=== PATIENT | female | born 1965 | race Caucasian/White ===

== ENCOUNTER 2016-11-26 08:10 | Day surgery (SDC) | payer BC ==
[2016-11-25 09:56] VITALS: BMI 29.2
[2016-11-26] MEDS ORDERED: PROPOFOL 20 ML ONE (08:58)
[2016-11-26] MEDS ORDERED: LIDOCAINE HCL 2% 100 MG/5 ML DISP.SYRIN ONE (08:58)
[2016-11-26 09:29] VITALS: TEMP 97.7
[2016-11-26 10:56] VITALS: BP 124/79; PULSE 61
--- NOTE | 2016-11-29 12:17 | PATH ---
Surgical Pathology Report Patient Name: DEE REARDON [facility]. Rec. #: [id number] /Age/Gender: 1965 (Age: 51) / F Account: [id number] Location: [facility]-ENDOSCOPY Taken: 11/26/2016 Received: 11/26/2016 Reported: 11/29/2016 Physicians: Pebbles Turner M.D. Specimen(s) Received A: BX 2ND PORTION OF DUODENUM AND DUODENAL BULB B: BX ANTRUM Clinical History Epigastric pain, GERD Gastritis Final Diagnosis A. DUODENUM, BIOPSY: DUODENAL MUCOSA WITH NO PATHOLOGIC CHANGES. NO HISTOLOGIC EVIDENCE OF GLUTEN SENSITIVE ENTEROPATHY (CELIAC SPRUE) IDENTIFIED. B. STOMACH, ANTRUM, BIOPSY: MILD REACTIVE GASTROPATHY. IMMUNOSTAIN FOR H. PYLORI IS NEGATIVE. Electronically Signed Juan Remy M.D. Gross Description A. Received in formalin, labeled "biopsy second portion of duodenum and duodenal bulb" are 3 mcdermott, irregular portions of soft tissue ranging from 0.3-0.4 cm. in greatest dimension. The specimens are submitted in toto in one cassette. B. Received in formalin, labeled "biopsy antrum" are 3 mcdermott, irregular portions of soft tissue ranging from 0.2-0.4 cm. in greatest dimension. The specimens are submitted in toto in one cassette. 11/26/2016 [facility]11/26/2016
== END 2016-11-26 10:40 | disposition home or self-care (01) ==
LOC: JASU-ENDO 08:10
PROVIDERS: ATTEND Internal Medicine Gastroenterology
PROC: 0DB68ZX Excision of Stomach, Via Natural or Artificial Opening Endoscopic, Diagnostic (ICD-10-PCS; 2016-11-26)
PROC: 0DB98ZX Excision of Duodenum, Via Natural or Artificial Opening Endoscopic, Diagnostic (ICD-10-PCS; principal; 2016-11-26 09:00)
DX: K29.00 Acute gastritis without bleeding (principal)
CPT/HCPCS: 88305-TC; 88342-TC

== ENCOUNTER 2020-01-08 04:39 | Day surgery (SDC) | payer BC ==
[2020-01-07 08:41] VITALS: BMI 29.4
[2020-01-08] MEDS ORDERED: DEXAMETHASONE SOD PHOSPHATE 4 MG/1 ML VIAL ONE (07:17)
[2020-01-08] MEDS ORDERED: LIDOCAINE HCL/PF 2% SDV 5ML VIAL ONE (07:17)
[2020-01-08] MEDS ORDERED: SUCCINYLCHOLINE CHLORIDE 200 MG/10 ML SYRINGE ONE (07:18)
[2020-01-08] MEDS ORDERED: PROPOFOL 20 ML ONE (07:18)
[2020-01-08] MEDS ORDERED: MIDAZOLAM HCL 2 MG/2 ML SINGLE DOSE VIAL ONE (07:19)
[2020-01-08] MEDS ORDERED: IBUPROFEN 600 MG TABLET (FP) PO PRN (07:43)
[2020-01-08] MEDS ORDERED: ONDANSETRON 4 MG/2 ML VIAL IVPUSH PRN (07:43)
[2020-01-08] MEDS ORDERED: oxyCODONE HCL 5 MG TABLET PO PRN ×2 (07:43→08:41)
[2020-01-08] MEDS ORDERED: IBUPROFEN 800 MG/8 ML IJ IVPB PRN (07:43)
--- NOTE | 2020-01-08 07:43 | HP ---
History & Physical Update - History History: No Change (Consent signed and witnessed, all questions answered) - Physical Physical: No Change - Assessment Assessment: No Change - Plan Plan: No Change (Consent signed and witnessed)
[2020-01-08] MEDS ORDERED: ELECTROLYTE-148 SOLN 1,000 ML IV SCH (07:45)
[2020-01-08] MEDS ORDERED: LACTATED RINGERS SOLUTION 1,000 ML IV SCH (08:45)
[2020-01-08 10:08] VITALS: TEMP 96.6
--- NOTE | 2020-01-08 10:10 | OP ---
Operative Note - Note: Operative Date: 01/08/20 Pre-Operative Diagnosis: 54yo P1 Postmenopausal with thick Endometrium Operation: Hysteroscopy/Polypectomy/Myomectomy/D&C Findings: Overgrown endometrium Post-Operative Diagnosis: Same as Pre-op Surgeon: Nelly Clark Anesthesiologist/REPLANTING MACHINE OPERATOR: Merritt Mcghee Anesthesia: MAC Estimated Blood Loss (mls): 5 Instrument used (Debridements only): Symphion Hysteroscope Drains & Tubes with Location: FD 1000cc Drains, Volume Out (mls): 30 Fluid Volume Replaced (mls): 500 Operative Report Dictated: Yes
[2020-01-08] MEDS ORDERED: ONDANSETRON 4 MG/2 ML VIAL ONE (11:13)
[2020-01-08 12:01] VITALS: BP 120/83; PULSE 51
--- NOTE | 2020-01-09 15:15 | PATH ---
Surgical Pathology Report Patient Name: DEE REARDON [facility]. Rec. #: [id number] /Age/Gender: 1965 (Age: 54) / F Account: [id number] Location: [facility] SURGICAL Taken: 01/08/2020 Received: 01/08/2020 Reported: 01/09/2020 Physicians: Nelly Clark M.D. Specimen(s) Received FIBROID, POLYP AND ENDOMETRIAL CURRETINGS Clinical History Thick endometrium, abnormal bleeding post menopausal Final Diagnosis POLYP, FIBROID, ENDOMETRIAL CURETTINGS: ENDOMETRIAL TISSUE SHOWING COMPLEX HYPERPLASIA WITH ATYPIA. SEE COMMENT. SEPARATE PORTIONS OF SMOOTH MUSCLE BUNDLES, MAY REPRESENT A SUBMUCOSAL LEIOMYOMA. Comment: Low grade endometrial carcinoma cannot be completely ruled out. Intradepartmental case review with concordance on diagnosis. This case was discussed with Dr. Clark on 01/09/2020. Electronically Signed Alexandro Paredes M.D. Gross Description Received in formalin labeled "polyp, fibroid, endometrial curettings," is a 2.3 x 2.1 x 0.3 cm aggregate of mcdermott soft tissue fragments. The formalin is filtered and the specimen is entirely submitted in one cassette. /01/08/2020 [place]01/08/2020
--- NOTE | 2020-01-10 11:00 | OP ---
DATE OF OPERATION: 01/08/2020 PREOPERATIVE DIAGNOSIS: A 54-year-old para 1, postmenopausal, with thick endometrium. PROCEDURE PERFORMED: Hysteroscopy, polypectomy, myomectomy, dilatation and curettage. FINDINGS: Overgrown endometrium and submucosal fibroid tissue. POSTOPERATIVE DIAGNOSIS: A 54-year-old para 1, postmenopausal, with thick endometrium. SURGEON: Yadira Platt MD ANESTHESIOLOGIST: Merritt Mcghee MD ANESTHESIA: MAC. DESCRIPTION OF PROCEDURE: After ensuring informed consent, the patient was brought to the operating room, where she was placed in the dorsal lithotomy position. After achieving adequate anesthesia, the perineum and vagina were prepped and draped in sterile fashion. After completing the time-out, the bladder was drained with a straight catheter. The Symphion hysteroscope was assembled, primed and white balanced. Wheatley retractors were placed into the vagina. The anterior cervical lip was articulated with a single-tooth tenaculum and dilated with gradually increasing in size dilators to accommodate a 6.3-mm Symphion hysteroscope. The above findings were noted: Overgrown endometrium and a polyp and fibroid-like tissue. Resectoscope was introduced through the hysteroscope, and all inward protruding structures were fully resected. Subsequently, excellent hemostasis was achieved. All instruments were removed from uterus, cervix and vagina. Estimated blood loss was 5 mL. The patient received 500 mL of IV fluids, drained 30 mL of urine, and fluid deficit was noted to be 1000 mL. The patient tolerated the procedure well. Instrument and sponge count was correct x2. The patient was brought to the recovery room in stable extubated condition. YADIRA PLATT M.D. [id number]
== END 2020-01-08 12:03 | disposition home or self-care (01) ==
LOC: JASU-SURG 04:39
PROVIDERS: ATTEND Obstetrics & Gynecology
PROC: 0UDB8ZX Extraction of Endometrium, Via Natural or Artificial Opening Endoscopic, Diagnostic (ICD-10-PCS; 2020-01-08)
PROC: 0UB98ZZ Excision of Uterus, Via Natural or Artificial Opening Endoscopic (ICD-10-PCS; principal; 2020-01-08 07:30)
PROC: 0UB98ZX Excision of Uterus, Via Natural or Artificial Opening Endoscopic, Diagnostic (ICD-10-PCS; 2020-01-08 07:30)
DX: D25.0 Submucous leiomyoma of uterus (principal)
CPT/HCPCS: 88305-TC; 94760

== ENCOUNTER 2022-04-28 04:32 | Day surgery (SDC) | payer BC ==
[2022-04-23 14:51] VITALS: BMI 26.6
[2022-04-28 10:42] VITALS: TEMP 97.6
[2022-04-28 11:07] VITALS: RESP 16
[2022-04-28 11:36] VITALS: BP 135/66; PULSE 52
[2022-04-28 12:14] LABS: BASO % 0.7 % (0-2.0); EOS % 1.4 % (0-4.5); HEMATOCRIT 44.6 % (32.4-45.2); HEMOGLOBIN 14.5 GM/dL (10.7-15.3); LYMPH % 36.5 % (8-40); MCH 25.1 pg (25.7-33.7); MCHC 32.4 g/dl (32.0-36.0); MEAN CELL VOLUME 77.4 fl (80-96); MEAN PLT VOLUME 9.1 fl (7.5-11.1); MONO % 6.4 % (3.8-10.2); PLATELET COUNT 183 10^3/uL (134-434); RBC 5.76 M/mm3 (3.60-5.2); RDW 15.1 % (11.6-15.6); WHITE BLOOD COUNT 5.4 K/mm3 (4.0-10.0)
[2022-04-28 12:34] LABS: CHLORIDE 108 mmol/L (98-107); SODIUM 141 mmol/L (136-145)
[2022-04-28 12:37] LABS: CALCIUM 9.5 mg/dL (8.5-10.1)
[2022-04-28 12:38] LABS: ALBUMIN 4.1 g/dl (3.4-5.0); ANION GAP 5 MMOL/L (8-16); CO2 28 mmol/L (21-32); GLUCOSE,RANDOM 86 mg/dL (74-106)
[2022-04-28 12:41] LABS: CREATININE 0.7 mg/dL (0.55-1.3); SGOT/AST 23 U/L (15-37); SGPT/ALT 28 U/L (13-61)
[2022-04-28 12:42] LABS: BILIRUBIN,TOTAL 0.8 mg/dL (0.2-1)
[2022-04-28 12:43] LABS: TOT PROT 7.6 g/dl (6.4-8.2)
[2022-04-28 12:44] LABS: ALK PHOS 79 U/L (45-117)
== END 2022-04-28 11:55 | disposition home or self-care (01) ==
LOC: JASU-ENDO 04:32
PROVIDERS: ATTEND Internal Medicine Gastroenterology
PROC: 0DB98ZX Excision of Duodenum, Via Natural or Artificial Opening Endoscopic, Diagnostic (ICD-10-PCS; 2022-04-28)
PROC: 0DB78ZX Excision of Stomach, Pylorus, Via Natural or Artificial Opening Endoscopic, Diagnostic (ICD-10-PCS; 2022-04-28)
PROC: 0DB68ZX Excision of Stomach, Via Natural or Artificial Opening Endoscopic, Diagnostic (ICD-10-PCS; 2022-04-28)
PROC: 0DBK8ZX Excision of Ascending Colon, Via Natural or Artificial Opening Endoscopic, Diagnostic (ICD-10-PCS; principal; 2022-04-28 10:00)
DX: Z12.11 Encounter for screening for malignant neoplasm of colon (principal); K64.8 Other hemorrhoids; K57.30 Diverticulosis of large intestine without perforation or abscess without bleeding; K25.3 Acute gastric ulcer without hemorrhage or perforation; K31.7 Polyp of stomach and duodenum; K31.9 Disease of stomach and duodenum, unspecified; K92.1 Melena
CPT/HCPCS: 36415; 80053; 82378; 85025; 86140; 88305-TC; 88342-TC